=== PATIENT | female | born 1955 | race Caucasian/White ===

== ENCOUNTER 2016-11-29 07:12 | Emergency (ER) | payer MEDICAID ==
[~2016-11-29] VITALS: Ht 167.6 cm; Wt 89.0 kg
[~2016-11-29 07:12] MED LIST: ARIP5TAB10 PO; BUPR150T12 PO; FISH10005 PO; MELA5SGL PO; ORE25 PO; PANT40EC PO; SERT100T PO; VARE1TAB PO
[2016-11-29 07:16] VITALS: BP 154/71
[2016-11-29] MEDS ORDERED: KETOROLAC 60 MG/2 ML VIAL IM ONE (07:40)
[2016-11-29 08:59] VITALS: BP 132/81
== END 2016-11-29 08:58 | disposition home or self-care (01) ==
LOC: MED 07:12
DX: M25.551 Pain in right hip (principal); M06.9 Rheumatoid arthritis, unspecified; F17.210 Nicotine dependence, cigarettes, uncomplicated; Z90.710 Acquired absence of both cervix and uterus; Z90.49 Acquired absence of other specified parts of digestive tract; Z79.899 Other long term (current) drug therapy
CPT/HCPCS: 73502; 96372; 99284; J1885